=== PATIENT | female | born 1960 | race Asian ===

== ENCOUNTER → 2018-10-07 | Outpatient (CLI) | payer BC ==
[2018-10-07 09:28] LABS: HAAIG REFLEX REFLEX FILED
[2018-10-07 22:18] LABS: HEPATITIS B SURFACE ANTIGEN NEGATIVE (NEGATIVE)
[2018-10-07 22:35] LABS: HEPATITIS B CORE ANTIBODY NEGATIVE (NEGATIVE); HEPATITIS C VIRAL ANTIBODY NEGATIVE (NEGATIVE)
== END | disposition home or self-care (01) ==
LOC: LAB 09:00
DX: R74.8 Abnormal levels of other serum enzymes (principal)
CPT/HCPCS: 86704; 86709; 86803; 87340

== ENCOUNTER → 2018-10-12 | Outpatient (CLI) | payer BC | END | disposition home or self-care (01) | LOC: C/S 09:08 | DX: K86.2 Cyst of pancreas (principal); R10.2 Pelvic and perineal pain | CPT/HCPCS: 74176 ==